=== PATIENT | male | born 1970 | race Caucasian/White ===

== ENCOUNTER 2017-02-08 08:05 | Inpatient (IN) | payer OTHER ==
[2017-02-08] VITALS (24 sets, daily range): BP systolic 106–142; BP diastolic 71–93
[~2017-02-08] VITALS: Ht 172.7 cm; Wt 68.9 kg
[2017-02-08] MEDS ORDERED: SODIUM CHLORIDE 0.9% 1,000 ML IV ONE (08:36)
[2017-02-08 09:06] LABS: HEMATOCRIT. 49.1 % (42.0-52.0); HEMOGLOBIN. 15.8 g/dL (14.0-18.0); MEAN CORPUSCULAR HEMOGLOBIN 31.7 pg (28.0-32.0); MEAN CORPUSCULAR VOLUME 98.2 fL (80.0-94.0); MEAN PLATELET VOLUME 10.2 fl (7.4-10.4); PLATELET 239 x1000/uL (130-400); RED CELL DISTRIBUTION WIDTH 14.6 % (11.6-14.6)
[2017-02-08 09:09] LABS: INR 1.1; PROTHROMBIN TIME 11.2 sec
[2017-02-08 09:13] LABS: AMMONIA 16 uMol/L (<32)
[2017-02-08 09:17] LABS: CHLORIDE 100 mEq/L (98-107); ETHANOL BLOOD < 10 mg/dL
[2017-02-08 09:18] LABS: TROPONIN I < 0.02 ng/mL (0.00-0.04)
[2017-02-08 09:20] LABS: CLARITY URINE CLEAR (CLEAR); COLOR URINE YELLOW (YELLOW); GLUCOSE URINE 3+ (NEGATIVE); KETONES URINE 4+ (NEGATIVE); LEUKOCYTE ESTERASE URINE NEGATIVE (NEGATIVE); NITRITE URINE NEGATIVE (NEGATIVE); OCCULT BLOOD URINE NEGATIVE (NEGATIVE); PROTEIN URINE NEGATIVE (NEGATIVE); SPECIFIC GRAVITY URINE 1.029 (1.005-1.030); UROBILINOGEN URINE 0.2 E.U./dL (0.2-1.0)
[2017-02-08 09:21] LABS: CARBON DIOXIDE 8 mEq/L (21-32)
[2017-02-08 09:44] LABS: *AMPHETAMINES SCREEN URINE NEGATIVE (NEGATIVE); *BARBITURATES SCREEN URINE NEGATIVE (NEGATIVE); *BENZODIAZEPINES SCREEN URINE NEGATIVE (NEGATIVE); *COCAINE SCREEN URINE NEGATIVE (NEGATIVE); CANNABINOID URINE SCREEN NEGATIVE (NEGATIVE); METHADONE URINE SCREEN NEGATIVE (NEGATIVE); OPIATES URINE SCREEN NEGATIVE (NEGATIVE); PHENCYCLIDINE URINE SCREEN NEGATIVE (NEGATIVE)
[2017-02-08 09:56] LABS: PLATELET ESTIMATE NORMAL
[2017-02-08] MEDS ORDERED: INSULIN REGULAR (DRIP) 100 UNITS in SODIUM CHLORIDE 0.9% 99 ML IV SCH (10:15)
[2017-02-08] MEDS ORDERED: LISI-604 PO (11:44)
[2017-02-08] MEDS ORDERED: DEXTROSE 50% WATER 50ML SYRINGE IV PRN ×2 (11:45)
[2017-02-08] MEDS ORDERED: ACETAMINOPHEN 325MG TABLET PO PRN (11:45)
[2017-02-08] MEDS ORDERED: GUAIFENESIN 200MG/10ML SUGAR FREE UDC PO PRN (11:45)
[2017-02-08] MEDS ORDERED: ONDANSETRON HCL 4MG/2ML VIAL IV PRN (11:45)
[2017-02-08] MEDS ORDERED: NA PHOS,M-B/NA PHOS,DI-BA ENEMA 118ML PR PRN (11:45)
[2017-02-08] MEDS ORDERED: TRAMADOL 50MG TABLET PO PRN (11:45)
[2017-02-08] MEDS ORDERED: INSLAN SQ (11:45)
[2017-02-08] MEDS ORDERED: NITROGLYCERIN 0.4MG TABLET SL SL PRN (11:45)
[2017-02-08] MEDS ORDERED: DOCUSATE SODIUM 100MG CAPSULE PO PRN (11:45)
[2017-02-08] MEDS ORDERED: DIPHENHYDRAMINE 50MG/ML VIAL IV PRN (11:45)
[2017-02-08] MEDS ORDERED: INSHUMSS SUBCUT (11:45)
[2017-02-08] MEDS ORDERED: MAGNESIUM/ALUMINUM HYDROXIDE/SIMETHICONE 30ML UDC PO PRN (11:45)
[2017-02-08] MEDS ORDERED: IPRATROPIUM/ALBUTEROL 0.5-3(2.5)MG/3ML NEB INH PRN (11:45)
[2017-02-08] MEDS ORDERED: SODIUM CHLORIDE 0.9% 1,000 ML IV SCH (12:00)
[2017-02-08] MEDS ORDERED: KETOROLAC 15MG/ML VIAL IV PRN (12:00)
[2017-02-08] MEDS: ASPIRIN 325MG EC TABLET PO SCH (12:18)
[2017-02-08] MEDS: ASCORBIC ACID 500 MG TABLET PO SCH ×2 (12:18→21:20)
[2017-02-08] MEDS: METOPROLOL TARTRATE 25MG TABLET PO SCH ×2 (12:18→21:24)
[2017-02-08] MEDS: PANTOPRAZOLE SODIUM 40 MG/VIAL IV SCH (12:18)
[2017-02-08] MEDS: ENOXAPARIN 40MG/0.4ML SYR SUBCUT SCH (12:23)
[2017-02-08] MEDS: BLOOD SUGAR DIAGNOSTIC STRIP TEST SCH ×13 (12:24→23:59)
[2017-02-08 15:08] LABS: CREATINE KINASE 123 IU/L (39-308); CREATINE KINASE MB FRACTION 2.9 ng/mL (0.5-3.6); TROPONIN I < 0.02 ng/mL (0.00-0.04)
[2017-02-08] MEDS: CEFTRIAXONE 1 G PREMIX 50 ML IV SCH (15:26)
[2017-02-08] MEDS: LEVOFLOXACIN 500MG PREMIX 100 ML IV SCH (15:58)
[2017-02-08] MEDS: INSULIN REGULAR (DRIP) 100 UNITS in SODIUM CHLORIDE 0.9% 99 ML IV SCH ×2 (16:35→18:12)
[2017-02-08 17:50] LABS: CARBON DIOXIDE 17 mEq/L (21-32); CHLORIDE 119 mEq/L (98-107)
[2017-02-08] MEDS ORDERED: ZOLPIDEM TARTRATE 5MG TABLET PO PRN (21:00)
[2017-02-08] MEDS: DEXT 5%/0.9% NACL KCL 20MEQ/L 1,000 ML IV SCH (21:21)
[2017-02-08 23:19] LABS: CREATINE KINASE 176 IU/L (39-308); CREATINE KINASE MB FRACTION 2.2 ng/mL (0.5-3.6); TROPONIN I < 0.02 ng/mL (0.00-0.04)
[2017-02-09] VITALS (43 sets, daily range): BP systolic 110–188; BP diastolic 73–112
[2017-02-09] MEDS: BLOOD SUGAR DIAGNOSTIC STRIP TEST SCH ×11 (01:01→21:17)
[2017-02-09] MEDS: DEXT 5%/0.9% NACL KCL 20MEQ/L 1,000 ML IV SCH (04:09)
[2017-02-09] MEDS: ASCORBIC ACID 500 MG TABLET PO SCH ×2 (08:59→21:21)
[2017-02-09] MEDS: ASPIRIN 325MG EC TABLET PO SCH (08:59)
[2017-02-09] MEDS: METOPROLOL TARTRATE 25MG TABLET PO SCH ×2 (09:00→21:21)
[2017-02-09] MEDS: PANTOPRAZOLE SODIUM 40 MG/VIAL IV SCH (09:00)
[2017-02-09] MEDS: ENOXAPARIN 40MG/0.4ML SYR SUBCUT SCH (09:03)
[2017-02-09 09:04] LABS: HEMATOCRIT. 42.2 % (42.0-52.0); HEMOGLOBIN. 14.6 g/dL (14.0-18.0); MEAN CORPUSCULAR HEMOGLOBIN 31.9 pg (28.0-32.0); MEAN CORPUSCULAR VOLUME 92.4 fL (80.0-94.0); MEAN PLATELET VOLUME 9.2 fl (7.4-10.4); PLATELET 201 x1000/uL (130-400); RED BLOOD CELL COUNT 4.57 mill/uL (4.7-6.1)
[2017-02-09 10:19] LABS: CARBON DIOXIDE 22 mEq/L (21-32); CHLORIDE 130 mEq/L (98-107)
[2017-02-09 10:22] LABS: PHOSPHORUS 0.9 mg/dL (2.5-4.9)
[2017-02-09] MEDS ORDERED: DEXTROSE 50% WATER 50ML SYRINGE IV PRN (11:15)
[2017-02-09] MEDS: SODIUM CHLORIDE 0.45% 1,000 ML IV SCH ×2 (12:08→19:25)
[2017-02-09] MEDS ORDERED: SODIUM PHOS,M-BASIC-D-BASIC 20 MM in DEXT 5% WATER 243.3333 ML IV NR (12:30)
[2017-02-09] MEDS: INSULIN LISPRO 100 UNITS/ML SUBCUT SCH ×5 (13:18→21:00)
[2017-02-09 13:28] LABS: PLATELET ESTIMATE NORMAL
[2017-02-09] MEDS ORDERED: POTASSIUM PHOS,M-BASIC-D-BASIC 20 MMOL in DEXT 5% WATER 243.3333 ML IV NR (13:30)
[2017-02-09] MEDS: INSULIN DETEMIR UD 100 UNITS/ML SYR SUBCUT SCH (13:54)
[2017-02-09] MEDS: CEFTRIAXONE 1 G PREMIX 50 ML IV SCH (14:42)
[2017-02-09] MEDS: LEVOFLOXACIN 500MG PREMIX 100 ML IV SCH (14:45)
[2017-02-10] VITALS (25 sets, daily range): BP systolic 125–176; BP diastolic 78–112
[2017-02-10] MEDS: SODIUM CHLORIDE 0.45% 1,000 ML IV SCH ×4 (01:12→22:12)
[2017-02-10 06:10] LABS: BASOPHILS % 0.4 % (0.0-2.0); HEMATOCRIT. 37.6 % (42.0-52.0); HEMOGLOBIN. 12.9 g/dL (14.0-18.0); LYMPHOCYTES % 13.3 % (20.0-50.0); MEAN CORPUSCULAR HEMOGLOBIN 31.9 pg (28.0-32.0); MEAN CORPUSCULAR VOLUME 92.7 fL (80.0-94.0); MEAN PLATELET VOLUME 9.7 fl (7.4-10.4); MONOCYTES % 7.1 % (2.0-8.0); NEUTROPHILS % 79.2 % (40.0-76.0); PLATELET 144 x1000/uL (130-400); RED BLOOD CELL COUNT 4.06 mill/uL (4.7-6.1); RED CELL DISTRIBUTION WIDTH 13.7 % (11.6-14.6)
[2017-02-10 07:46] LABS: CARBON DIOXIDE 25 mEq/L (21-32); CHLORIDE 115 mEq/L (98-107)
[2017-02-10] MEDS: BLOOD SUGAR DIAGNOSTIC STRIP TEST SCH ×4 (07:50→21:00)
[2017-02-10] MEDS: INSULIN LISPRO 100 UNITS/ML SUBCUT SCH ×7 (08:20→21:00)
[2017-02-10] MEDS: PANTOPRAZOLE SODIUM 40 MG/VIAL IV SCH (08:51)
[2017-02-10] MEDS: ASPIRIN 325MG EC TABLET PO SCH (08:51)
[2017-02-10] MEDS: ASCORBIC ACID 500 MG TABLET PO SCH ×2 (08:51→22:11)
[2017-02-10] MEDS: METOPROLOL TARTRATE 25MG TABLET PO SCH ×2 (08:53→22:11)
[2017-02-10] MEDS: ENOXAPARIN 40MG/0.4ML SYR SUBCUT SCH (08:54)
[2017-02-10] MEDS: INSULIN DETEMIR UD 100 UNITS/ML SYR SUBCUT SCH (10:58)
[2017-02-10] MEDS ORDERED: POTASSIUM CHLORIDE 20MEQ TABLET SR PO NR (11:00)
[2017-02-10 11:38] LABS: PHOSPHORUS 2.2 mg/dL (2.5-4.9)
[2017-02-10] MEDS: CEFTRIAXONE 1 G PREMIX 50 ML IV SCH ×2 (13:22→13:40)
[2017-02-10] MEDS ORDERED: POTASSIUM PHOS,M-BASIC-D-BASIC 15 MMOL in DEXT 5% WATER 245 ML IV NR ×2 (14:00→17:00)
[2017-02-10] MEDS: LEVOFLOXACIN 500MG PREMIX 100 ML IV SCH (14:19)
[2017-02-10] MEDS ORDERED: LIDOCAINE HCL 20 MG/ML 100ML BOTTLE MM PRN (17:00)
[2017-02-10] MEDS: CLONIDINE 0.1MG TABLET PO PRN (17:12)
[2017-02-11] VITALS: BP 135/87
[2017-02-11 04:00] VITALS: BP 136/90
[2017-02-11] MEDS: BLOOD SUGAR DIAGNOSTIC STRIP TEST SCH ×4 (06:42→20:35)
[2017-02-11 08:00] VITALS: BP 155/96
[2017-02-11] MEDS: ENOXAPARIN 40MG/0.4ML SYR SUBCUT SCH (08:39)
[2017-02-11] MEDS: CLONIDINE 0.1MG TABLET PO PRN (08:40)
[2017-02-11] MEDS: FAMOTIDINE 20MG TABLET PO SCH ×2 (08:40→16:25)
[2017-02-11] MEDS: METOPROLOL TARTRATE 25MG TABLET PO SCH ×2 (08:40→20:35)
[2017-02-11] MEDS: ASCORBIC ACID 500 MG TABLET PO SCH ×2 (08:40→20:34)
[2017-02-11] MEDS: ASPIRIN 325MG EC TABLET PO SCH (08:41)
[2017-02-11] MEDS: INSULIN LISPRO 100 UNITS/ML SUBCUT SCH ×7 (08:44→20:35)
[2017-02-11] MEDS: SODIUM CHLORIDE 0.45% 1,000 ML IV SCH ×3 (10:31→21:09)
[2017-02-11] MEDS: INSULIN DETEMIR UD 100 UNITS/ML SYR SUBCUT SCH (10:36)
[2017-02-11 12:00] VITALS: BP 139/92
[2017-02-11] MEDS: CEFTRIAXONE 1 G PREMIX 50 ML IV SCH (13:57)
[2017-02-11] MEDS ORDERED: LEVOFLOXACIN 500MG PREMIX 100 ML IV SCH ×2 (14:00)
[2017-02-11] MEDS ORDERED: LEVOFLOXACIN 500MG TABLET PO SCH (14:00)
[2017-02-11 16:00] VITALS: BP 120/93
[2017-02-11 20:00] VITALS: BP 142/96
[2017-02-12] VITALS: BP 145/90
[2017-02-12] MEDS: SODIUM CHLORIDE 0.45% 1,000 ML IV SCH (03:34)
[2017-02-12 04:00] VITALS: BP 127/77
[2017-02-12] MEDS: BLOOD SUGAR DIAGNOSTIC STRIP TEST SCH (06:30)
[2017-02-12 08:00] VITALS: BP 149/96
[2017-02-12] MEDS: ASPIRIN 325MG EC TABLET PO SCH (08:17)
[2017-02-12] MEDS: FAMOTIDINE 20MG TABLET PO SCH (08:17)
[2017-02-12] MEDS: ASCORBIC ACID 500 MG TABLET PO SCH (08:17)
[2017-02-12] MEDS: ENOXAPARIN 40MG/0.4ML SYR SUBCUT SCH (08:17)
[2017-02-12] MEDS: CLONIDINE 0.1MG TABLET PO PRN (08:18)
[2017-02-12] MEDS: METOPROLOL TARTRATE 25MG TABLET PO SCH (08:18)
[2017-02-12] MEDS: INSULIN LISPRO 100 UNITS/ML SUBCUT SCH ×2 (08:22→08:23)
[2017-02-12] MEDS: INSULIN DETEMIR UD 100 UNITS/ML SYR SUBCUT SCH (10:49)
[2017-02-12 11:12] VITALS: BP 132/72
[2017-02-12 12:00] VITALS: BP 139/90
== END 2017-02-12 12:20 | disposition home or self-care (01) | DRG 871 ==
LOC: ER 08:11 → CVICU 10:13 → 6EST 02-10 13:07
PROVIDERS: ADMIT Internal Medicine; ATTEND Internal Medicine
DX: A41.9 Sepsis, unspecified organism (principal); E13.10 Other specified diabetes mellitus with ketoacidosis without coma; G92 Toxic encephalopathy; E44.0 Moderate protein-calorie malnutrition; E87.5 Hyperkalemia; Z68.23 Body mass index [BMI] 23.0-23.9, adult
CPT/HCPCS: 36415; 70450; 71010; 80048; 80053; 80305; 81001; 82010; 82140; 82550; 82553; 82962; 83036; 83605; 83735; 83880; 84100; 84443; 84484; 85025; 85610; 87040; 87086; 93005; 93970; 96361; 96365; 97116; 97162; 97166; 99291; C1893; C9113; G0482; J0696; J1650; J1815; J1885; J1956; J2405; J3490; J7030; J7050; J7060

== ENCOUNTER 2017-07-20 15:05 | Inpatient (IN) | payer OTHER ==
[~2017-07-20] VITALS: Ht 172.7 cm; Wt 77.1 kg
[~2017-07-20 15:05] MED LIST: INSHUMSS SUBCUT; INSLAN SQ; LISI-604 PO
[2017-07-20] MEDS ORDERED: SODIUM CHLORIDE 0.9% 1,000 ML IV ONE (15:59)
[2017-07-20] MEDS ORDERED: DEXTROSE 50% WATER 50ML SYRINGE IV ONE (16:00)
[2017-07-20 16:27] LABS: BASOPHILS % 0.8 % (0.0-2.0); EOSINOPHILS % 1.3 % (0.0-5.0); HEMATOCRIT. 44.3 % (42.0-52.0); HEMOGLOBIN. 15.1 g/dL (14.0-18.0); LYMPHOCYTES % 13.9 % (20.0-50.0); MEAN CORPUSCULAR HEMOGLOBIN 31.9 pg (28.0-32.0); MEAN CORPUSCULAR VOLUME 93.9 fL (80.0-94.0); MEAN PLATELET VOLUME 9.3 fl (7.4-10.4); MONOCYTES % 8.3 % (2.0-8.0); NEUTROPHILS % 75.7 % (40.0-76.0); PLATELET 140 x1000/uL (130-400); RED BLOOD CELL COUNT 4.72 mill/uL (4.7-6.1); RED CELL DISTRIBUTION WIDTH 13.4 % (11.6-14.6)
[2017-07-20 16:30] LABS: PROTHROMBIN TIME 10.3 sec (9.4-11.6)
[2017-07-20 16:35] LABS: CARBON DIOXIDE 27 mEq/L (21-32); CHLORIDE 105 mEq/L (98-107); ETHANOL BLOOD < 10 mg/dL
[2017-07-20 16:38] LABS: TROPONIN I < 0.02 ng/mL (0.00-0.04)
[2017-07-20 16:46] LABS: CARBAMAZEPINE < 0.5 ug/mL (4-12); PHENOBARBITAL < 2.1 ug/mL (15.0-40.0); VALPROIC ACID < 3.0 ug/mL (50-100)
[2017-07-20 17:11] LABS: BG BASE EXCESS -3.6 mmol/L (-2.0-2.0); BG CARBOXYHEMOGLOBIN 0.5 % (0.5-1.5); BG DEOXYHEMOGLOBIN 3.6 % (0.0-5.0); BG HCO3 ACT 21.6 mmol/L (22.0-26.0); BG METHEMOGLOBIN 0.5 % (0.0-1.5); BG OXYGEN SATURATION 96.4 % (92.0-98.5); BG OXYHEMOGLOBIN 95.4 % (94.0-97.0); BG PCO2 39.3 mmHg (35.0-45.0); BG PH 7.357 (7.350-7.450); BG PO2 89.2 mmHg (75.0-100.0); BG SAMPLE SITE RIGHT BRACHIAL; BG TOTAL HEMOGLOBIN 14.7 g/dL (12.0-18.0); BG VENT MODE ROOM AIR
[2017-07-20 18:44] LABS: CLARITY URINE CLEAR (CLEAR); COLOR URINE YELLOW (YELLOW); GLUCOSE URINE 2+ (NEGATIVE); KETONES URINE NEGATIVE (NEGATIVE); LEUKOCYTE ESTERASE URINE NEGATIVE (NEGATIVE); NITRITE URINE NEGATIVE (NEGATIVE); OCCULT BLOOD URINE NEGATIVE (NEGATIVE); PROTEIN URINE NEGATIVE (NEGATIVE); SPECIFIC GRAVITY URINE 1.025 (1.005-1.030); UROBILINOGEN URINE 0.2 E.U./dL (0.2-1.0)
[2017-07-20 19:16] LABS: *AMPHETAMINES SCREEN URINE NEGATIVE (NEGATIVE); *BARBITURATES SCREEN URINE NEGATIVE (NEGATIVE); *BENZODIAZEPINES SCREEN URINE NEGATIVE (NEGATIVE); *COCAINE SCREEN URINE NEGATIVE (NEGATIVE); CANNABINOID URINE SCREEN NEGATIVE (NEGATIVE); METHADONE URINE SCREEN NEGATIVE (NEGATIVE); OPIATES URINE SCREEN NEGATIVE (NEGATIVE); PHENCYCLIDINE URINE SCREEN NEGATIVE (NEGATIVE)
[2017-07-20 20:58] VITALS: BP 138/92
[2017-07-20] MEDS ORDERED: ASPI-1159 PO (21:09)
[2017-07-20] MEDS ORDERED: PREG50CA PO (21:09)
[2017-07-20] MEDS ORDERED: INFLUENZA VIRUS VACCINE 0.5ML SYR IM ONE (22:00)
[2017-07-20] MEDS ORDERED: CLONIDINE 0.1MG TABLET PO PRN (22:45)
[2017-07-20] MEDS ORDERED: IPRATROPIUM/ALBUTEROL 0.5-3(2.5)MG/3ML NEB INH PRN (22:45)
[2017-07-20] MEDS ORDERED: ONDANSETRON HCL 4MG/2ML VIAL IV PRN (22:45)
[2017-07-20] MEDS ORDERED: MAGNESIUM/ALUMINUM HYDROXIDE/SIMETHICONE 30ML UDC PO PRN (22:45)
[2017-07-20] MEDS ORDERED: HYDROCODONE/ACETAMINOPHEN 5/325MG TABLET PO PRN (22:45)
[2017-07-20] MEDS ORDERED: DEXTROSE 50% WATER 50ML SYRINGE IV PRN ×2 (22:45→23:00)
[2017-07-20] MEDS ORDERED: ACETAMINOPHEN 325MG TABLET PO PRN (22:45)
[2017-07-20] MEDS: ENOXAPARIN 40MG/0.4ML SYR SUBCUT SCH (23:04)
[2017-07-20 23:40] LABS: CARBON DIOXIDE 27 mEq/L (21-32); CHLORIDE 101 mEq/L (98-107)
[2017-07-21] VITALS: BP 140/86
[2017-07-21] MEDS: INSULIN LISPRO 100 UNITS/ML SUBCUT SCH ×6 (00:21→21:24)
[2017-07-21] MEDS: BLOOD SUGAR DIAGNOSTIC STRIP TEST SCH ×7 (00:23→21:25)
[2017-07-21 02:42] LABS: CLARITY URINE CLEAR (CLEAR); COLOR URINE YELLOW (YELLOW); GLUCOSE URINE 3+ (NEGATIVE); KETONES URINE NEGATIVE (NEGATIVE); LEUKOCYTE ESTERASE URINE NEGATIVE (NEGATIVE); NITRITE URINE NEGATIVE (NEGATIVE); OCCULT BLOOD URINE NEGATIVE (NEGATIVE); PH URINE 7.5 (4.5-8.0); PROTEIN URINE NEGATIVE (NEGATIVE); SPECIFIC GRAVITY URINE 1.023 (1.005-1.030); UROBILINOGEN URINE 0.2 E.U./dL (0.2-1.0)
[2017-07-21 04:00] VITALS: BP 107/57
[2017-07-21] MEDS ORDERED: SODIUM POLYSTYRENE SULFONATE 15 G/60 ML BOT PO SCH (07:00)
[2017-07-21 08:00] VITALS: BP 130/75
[2017-07-21 08:50] LABS: CREATINE KINASE 106 IU/L (39-308); HDL CHOLESTEROL 53 mg/dL (40-59); LDL CHOLESTEROL 87 mg/dL (5-100); TROPONIN I < 0.02 ng/mL (0.00-0.04)
[2017-07-21] MEDS: INSULIN DETEMIR UD 100 UNITS/ML SYR SUBCUT SCH ×2 (10:17→21:25)
[2017-07-21] MEDS: LEVETIRACETAM 500MG TABLET PO SCH ×2 (10:20→20:58)
[2017-07-21 12:00] VITALS: BP 112/85
[2017-07-21 16:00] VITALS: BP 111/66
[2017-07-21 16:49] LABS: CREATINE KINASE 91 IU/L (39-308); CREATINE KINASE MB FRACTION 0.6 ng/mL (0.5-3.6); TROPONIN I < 0.02 ng/mL (0.00-0.04)
[2017-07-21 20:00] VITALS: BP 103/62
[2017-07-21] MEDS: ENOXAPARIN 40MG/0.4ML SYR SUBCUT SCH (20:58)
[2017-07-22] VITALS: BP 108/70
[2017-07-22 04:00] VITALS: BP 106/68
[2017-07-22] MEDS: BLOOD SUGAR DIAGNOSTIC STRIP TEST SCH ×2 (06:39→12:38)
[2017-07-22 07:05] VITALS: BP 123/84
[2017-07-22 07:58] LABS: BASOPHILS % 0.7 % (0.0-2.0); EOSINOPHILS % 2.1 % (0.0-5.0); HEMATOCRIT. 41.6 % (42.0-52.0); HEMOGLOBIN. 14.3 g/dL (14.0-18.0); LYMPHOCYTES % 24.7 % (20.0-50.0); MEAN CORPUSCULAR HEMOGLOBIN 32.2 pg (28.0-32.0); MEAN CORPUSCULAR VOLUME 93.6 fL (80.0-94.0); MEAN PLATELET VOLUME 9.8 fl (7.4-10.4); NEUTROPHILS % 63.5 % (40.0-76.0); PLATELET 140 x1000/uL (130-400); RED BLOOD CELL COUNT 4.45 mill/uL (4.7-6.1); RED CELL DISTRIBUTION WIDTH 13.4 % (11.6-14.6)
[2017-07-22] MEDS: LEVETIRACETAM 500MG TABLET PO SCH (08:24)
[2017-07-22] MEDS: INSULIN LISPRO 100 UNITS/ML SUBCUT SCH ×2 (08:24→13:15)
[2017-07-22 09:14] LABS: CHLORIDE 106 mEq/L (98-107)
[2017-07-22 09:22] LABS: CARBON DIOXIDE 24 mEq/L (21-32)
[2017-07-22] MEDS: INSULIN DETEMIR UD 100 UNITS/ML SYR SUBCUT SCH (10:48)
[2017-07-22 11:31] VITALS: BP 128/89
[2017-07-22 16:01] VITALS: BP 103/77
== END 2017-07-22 16:15 | disposition home or self-care (01) | DRG 639 ==
LOC: ER 15:19 → 6WST 17:12 → EDBEDREQ 17:14 → EDBEDREQSVC 17:14 → ENRESERV 19:26 → EDBEDREQ 20:11
PROVIDERS: ADMIT Internal Medicine; ATTEND Internal Medicine
PROC: 4A00X4Z Measurement of Central Nervous Electrical Activity, External Approach (ICD-10-PCS; principal; 2017-07-22)
DX: E11.649 Type 2 diabetes mellitus with hypoglycemia without coma (principal); E87.5 Hyperkalemia; G40.409 Other generalized epilepsy and epileptic syndromes, not intractable, without status epilepticus; I10 Essential (primary) hypertension; Z79.4 Long term (current) use of insulin; Z79.82 Long term (current) use of aspirin; Z79.899 Other long term (current) drug therapy
CPT/HCPCS: 36415; 36600; 70450; 70551; 71010; 80048; 80053; 80061; 80156; 80165; 80184; 80185; 80305; 81001; 82375; 82533; 82550; 82553; 82805; 82962; 83036; 83605; 83690; 83880; 84443; 84484; 85025; 85610; 87040; 87086; 93005; 93970; 96361; 96374; 99291; G0482; J1650; J1815; J7030

== ENCOUNTER 2021-10-02 20:28 | Inpatient (IN) | payer MEDICAID, OTHER ==
[~2021-10-02] VITALS: Ht 162.6 cm; Wt 63.5 kg
[~2021-10-02 20:28] MED LIST changes: +ASPI-1497 PO; -LISI-604 PO; +LISI20TA31 PO; +PREG50CA PO
[2021-10-03 00:06] LABS: BASOPHILS % 0.6 % (0.0-2.0); EOSINOPHILS % 0.4 % (0.0-5.0); HEMATOCRIT. 43.5 % (42.0-52.0); HEMOGLOBIN. 14.1 g/dL (14.0-18.0); MEAN CORPUSCULAR HEMOGLOBIN 31.6 pg (28.0-32.0); MEAN CORPUSCULAR VOLUME 97.4 fL (80.0-94.0); MEAN PLATELET VOLUME 9.3 fl (7.4-10.4); MONOCYTES % 6.3 % (2.0-8.0); NEUTROPHILS % 73.7 % (40.0-76.0); PLATELET 213 x1000/uL (130-400); RED BLOOD CELL COUNT 4.46 mill/uL (4.7-6.1); RED CELL DISTRIBUTION WIDTH 13.6 % (11.6-14.6)
[2021-10-03 00:13] LABS: CHLORIDE 100 mEq/L (98-107)
[2021-10-03 00:22] LABS: BETA HYDROXYBUTYRATE 5.5 mMol/L (0.0-0.3)
[2021-10-03] MEDS ORDERED: ONDANSETRON HCL 4MG/2ML INJ IV ONE (01:15)
[2021-10-03] MEDS ORDERED: INSULIN REGULAR (DRIP) 100 UNITS in SODIUM CHLORIDE 0.9% 99 ML IV NR (01:30)
[2021-10-03] MEDS ORDERED: SODIUM CHLORIDE 0.9% 1000ML BAG (SEPSIS BOLUS) IV NR (01:30)
[2021-10-03] MEDS ORDERED: MAGNESIUM/ALUMINUM HYDROXIDE/SIMETHICONE 30ML UDC PO PRN (03:15)
[2021-10-03] MEDS ORDERED: DEXTROSE 50% WATER 50ML SYRINGE IV PRN (03:15)
[2021-10-03] MEDS ORDERED: CLONIDINE 0.1MG TABLET PO PRN (03:15)
[2021-10-03] MEDS ORDERED: ONDANSETRON HCL 4MG/2ML INJ IV PRN (03:15)
[2021-10-03] MEDS ORDERED: ACETAMINOPHEN 325MG TABLET PO PRN ×2 (03:15)
[2021-10-03] MEDS ORDERED: ZOLPIDEM TARTRATE 5MG TABLET PO PRN (03:15)
[2021-10-03] MEDS ORDERED: INSULIN GLARGINE UD 100 UNITS/ML SYR SUBCUT SCH (04:00)
[2021-10-03] MEDS: BLOOD SUGAR DIAGNOSTIC STRIP TEST SCH ×5 (04:00→20:00)
[2021-10-03] MEDS: SODIUM CHLORIDE 0.9% 1,000 ML IV SCH ×3 (05:15→20:21)
[2021-10-03] MEDS: SODIUM CHLORIDE 0.9% INJ 3ML FLUSH IVF SCH ×3 (06:44→22:11)
[2021-10-03] MEDS: INSULIN LISPRO 100 UNITS/ML SUBCUT SCH ×4 (08:59→21:50)
[2021-10-03 23:05] VITALS: BP 130/80
[2021-10-04] VITALS (9 sets, daily range): BP systolic 99–147; BP diastolic 59–128
[2021-10-04] MEDS: INSULIN LISPRO 100 UNITS/ML SUBCUT SCH ×5 (02:16→16:00)
[2021-10-04] MEDS: INSULIN GLARGINE UD 100 UNITS/ML SYR SUBCUT SCH ×2 (02:17→11:58)
[2021-10-04] MEDS: BLOOD SUGAR DIAGNOSTIC STRIP TEST SCH ×5 (03:56→16:10)
[2021-10-04] MEDS: SODIUM CHLORIDE 0.9% 1,000 ML IV SCH ×2 (04:00→11:55)
[2021-10-04] MEDS: SODIUM CHLORIDE 0.9% INJ 3ML FLUSH IVF SCH ×2 (06:00→14:45)
[2021-10-04] MEDS ORDERED: BLOOD SUGAR DIAGNOSTIC STRIP TEST SCH (21:00)
[2021-10-04] MEDS ORDERED: INSULIN LISPRO 100 UNITS/ML SUBCUT SCH (21:00)
== END 2021-10-04 19:14 | disposition home or self-care (01) | DRG 420 ==
LOC: ER 20:28 → MICUSO 10-03 01:33 → EDBEDREQSVC 10-03 08:27 → ENRESERV 10-03 21:46 → 5EST 10-03 21:47
PROVIDERS: ADMIT Internal Medicine; ATTEND Internal Medicine
DX: E11.10 Type 2 diabetes mellitus with ketoacidosis without coma (principal); E87.1 Hypo-osmolality and hyponatremia; E11.42 Type 2 diabetes mellitus with diabetic polyneuropathy; Z20.822 Contact with and (suspected) exposure to COVID-19; E11.40 Type 2 diabetes mellitus with diabetic neuropathy, unspecified; I10 Essential (primary) hypertension; Z96.41 Presence of insulin pump (external) (internal); Z79.82 Long term (current) use of aspirin; Z79.4 Long term (current) use of insulin; Z79.899 Other long term (current) drug therapy; Z83.3 Family history of diabetes mellitus
CPT/HCPCS: 36415; 71045; 80053; 82010; 82962; 83036; 85025; 87426; 99285; J1815; J2405; J7050

== ENCOUNTER 2023-05-01 18:31 | Emergency (ER) | payer MEDICAID ==
[~2023-05-01] VITALS: Ht 167.6 cm; Wt 68.0 kg
[~2023-05-01 18:31] MED LIST changes: -INSHUMSS SUBCUT; -INSLAN SQ
[2023-05-01 18:47] VITALS: O2SAT 98
[2023-05-01] MEDS ORDERED: ONDANSETRON HCL 4MG/2ML INJ IV STA (21:52)
[2023-05-01] MEDS ORDERED: SODIUM CHLORIDE 0.9% 1,000 ML IV ONE (22:00)
[2023-05-01 22:49] LABS: BASOPHILS % 0.5 % (0.0-2.0); EOSINOPHILS % 0.8 % (0.0-5.0); HEMATOCRIT. 46.5 % (42.0-52.0); HEMOGLOBIN. 15.4 g/dL (14.0-18.0); LYMPHOCYTES % 15.1 % (20.0-50.0); MEAN CORPUSCULAR HEMOGLOBIN 32.1 pg (28.0-32.0); MEAN CORPUSCULAR HGB CONC 33.1 g/dL (31.0-37.0); MEAN PLATELET VOLUME 8.3 fl (7.4-10.4); MONOCYTES % 6.9 % (2.0-8.0); NEUTROPHILS % 76.7 % (40.0-76.0); PLATELET 227 x1000/uL (130-400); RED BLOOD CELL COUNT 4.79 mill/uL (4.7-6.1); RED CELL DISTRIBUTION WIDTH 13.6 % (11.6-14.6); WHITE BLOOD COUNT 9.8 x1000/uL (4.5-11.0)
[2023-05-01 22:54] LABS: CHLORIDE 103 mEq/L (98-107); INDEX HEMOLYSI 1 (1-3); INDEX ICTERIC 1 (1-4); INDEX LIPEMIC 1 (1-3); POTASSIUM 4.3 mEq/L (3.5-5.1); SODIUM 133 mEq/L (136-145)
[2023-05-01 23:02] LABS: ALANINE AMINOTRANSFERASE 18 IU/L (13-61); ALBUMIN 3.5 g/dL (3.4-5.0); ASPARTATE AMINOTRANSFERASE 9 IU/L (15-37); BILIRUBIN TOTAL 0.5 mg/dL (0.1-1.0); CALCIUM 9.1 mg/dL (8.5-10.1); CARBON DIOXIDE 26 mEq/L (21-32); GLUCOSE 291 mg/dL (70-105); PROTEIN TOTAL 7.9 g/dL (6.0-8.3); UREA NITROGEN BLOOD 28 mg/dL (7-21)
[2023-05-02] MEDS ORDERED: ONDA4TAB11 PO (02:24)
[2023-05-02] MEDS ORDERED: ONDANSETRON HCL 4MG/2ML INJ IV ONE (02:30)
[2023-05-02 02:36] VITALS: BP 150/90; PULSE 88; RESP 18; TEMP 98
== END 2023-05-02 02:43 | disposition home or self-care (01) ==
LOC: ER 18:31
DX: J06.9 Acute upper respiratory infection, unspecified (principal); R55 Syncope and collapse; E11.9 Type 2 diabetes mellitus without complications; Z20.822 Contact with and (suspected) exposure to COVID-19
CPT/HCPCS: 99284; 96374; 87426; 80053; 85025; 87804 ×2; 36415; 93005; 96376; J2405 ×2; J7030; C9803

== ENCOUNTER 2024-07-04 13:32 | Emergency (ER) | payer MEDICAID ==
[~2024-07-04] VITALS: Ht 167.6 cm; Wt 73.0 kg
[~2024-07-04 13:32] MED LIST changes: +ONDA-239 PO
[2024-07-04 13:42] VITALS: O2SAT 99
[2024-07-04 18:18] LABS: BASOPHILS % 0.8 % (0.0-2.0); EOSINOPHILS % 2.6 % (0.0-5.0); HEMATOCRIT. 45.8 % (42.0-52.0); HEMOGLOBIN. 15.7 g/dL (14.0-18.0); LYMPHOCYTES % 27.6 % (20.0-50.0); MEAN CORPUSCULAR HEMOGLOBIN 33.1 pg (28.0-32.0); MEAN CORPUSCULAR HGB CONC 34.3 g/dL (31.0-37.0); MEAN CORPUSCULAR VOLUME 96.4 fL (80.0-94.0); MEAN PLATELET VOLUME 8.9 fl (7.4-10.4); PLATELET 174 x1000/uL (130-400); RED BLOOD CELL COUNT 4.76 mill/uL (4.7-6.1); RED CELL DISTRIBUTION WIDTH 14.2 % (11.6-14.6); WHITE BLOOD COUNT 5.8 x1000/uL (4.5-11.0)
[2024-07-04 18:21] LABS: CHLORIDE 108 mEq/L (98-107); POTASSIUM 4.4 mEq/L (3.5-5.1); SODIUM 140 mEq/L (136-145)
[2024-07-04 18:22] LABS: CARBON DIOXIDE 27 mEq/L (21-32)
[2024-07-04 18:23] LABS: CALCIUM 9.3 mg/dL (8.7-10.4)
[2024-07-04 18:28] LABS: INR 0.9; PARTIAL THROMBOPLASTIN TIME 26.2 sec (23.4-31.0); PROTHROMBIN TIME 10.3 sec (9.6-11.0); TROPONIN I HIGH SENSITIVITY 5 ng/L (3.0-53); UREA NITROGEN BLOOD 24 mg/dL (9-23)
[2024-07-04 18:29] LABS: ALANINE AMINOTRANSFERASE 15 IU/L (10-49); ALBUMIN 4.4 g/dL (3.2-4.8); ASPARTATE AMINOTRANSFERASE 17 IU/L (<34)
[2024-07-04 18:30] LABS: BILIRUBIN DIRECT 0.1 mg/dL (<=3.0); BILIRUBIN TOTAL 0.5 mg/dL (0.1-1.0); PROTEIN TOTAL 7.3 g/dL (6.0-8.3)
[2024-07-04 18:32] LABS: ETHANOL BLOOD < 10 mg/dL (<10); GLUCOSE 127 mg/dL (70-105)
[2024-07-04 18:47] VITALS: TEMP 36.66960
[2024-07-04] MEDS: ASPIRIN 325MG TABLET PO ONE (19:34)
[2024-07-04 21:03] VITALS: BP 178/108; PULSE 80; RESP 16; O2SAT 99
== END 2024-07-04 21:06 | disposition home or self-care (01) ==
LOC: ER 13:49 → EDBEDREQ 18:23 → ER 21:06
DX: R07.89 Other chest pain (principal); E11.9 Type 2 diabetes mellitus without complications; Z79.82 Long term (current) use of aspirin
CPT/HCPCS: 80076; 80048; 80320; 83880; 83690; 85025; 85379; 85610; 85730; 84484; 36415; 71045; 93005; 99285; Z7610; G0480